=== PATIENT | male | born 1970 | race Caucasian/White ===

== ENCOUNTER 2018-10-22 07:39 | Emergency (ER) | payer OTHER ==
[2018-10-22 07:53] VITALS: BP 144/104; PULSE 103; TEMP 97.6; BMI 29.9
[2018-10-22] MEDS ORDERED: NAPROXEN 500 MG TABLET (FP) PO ONE (08:53)
[2018-10-22] MEDS ORDERED: NAPROXEN 500 MG TABLET (FP) ONE (08:54)
--- NOTE | 2018-10-22 08:54 | PDOC ---
History of Present Illness - General Chief Complaint: Injury Stated Complaint: L ANKLE INJURY Time Seen by Provider: 10/22/18 08:15 History Source: Patient Exam Limitations: No Limitations - History of Present Illness Initial Comments: 10/22/18 13:11 48 yr male with c/o left ankle pain for 2 weeks pt had injury 3 yrs ago. Pt denies recent injury . pt took tylenol for pain. Past History - Past Medical History Allergies/Adverse Reactions: Allergies Allergy/AdvReac Type Severity Reaction Status Date / Time Penicillins Allergy Severe Difficulty Verified 10/22/18 07:54 Breathing Home Medications: Ambulatory Orders Naproxen [Naprosyn -] 500 mg PO BID PRN #14 tablet 10/22/18 COPD: No - Immunization History Immunization Up to Date: Yes - Suicide/Smoking/Psychosocial Hx Smoking History: Never smoked Hx Alcohol Use: Yes Drug/Substance Use Hx: No *Physical Exam - Vital Signs Last Vital Signs Temp Pulse Resp BP Pulse Ox 97.6 F 103 H 18 144/104 H 100 10/22/18 07:44 10/22/18 07:44 10/22/18 07:44 10/22/18 07:44 10/22/18 07:44 - Physical Exam General Appearance: Yes: Nourished, Appropriately Dressed HEENT: positive: EOMI, RICARDO, TMs Normal, Pharynx Normal Neck: positive: Supple. negative: Tender Respiratory/Chest: positive: Lungs Clear, Normal Breath Sounds. negative: Chest Tender Cardiovascular: positive: Regular Rhythm, Regular Rate Gastrointestinal/Abdominal: positive: Normal Bowel Sounds, Soft Musculoskeletal: positive: Normal Inspection Extremity: positive: Normal Capillary Refill, Normal Inspection, Normal Range of Motion Integumentary: positive: Normal Color, Dry, Warm Neurologic: positive: Fully Oriented, Alert, Normal Mood/Affect, Normal Response , Motor Strength 5/5 ED Treatment Course - RADIOLOGY Radiology Studies Ordered: Category Date Time Status ANKLE & FOOT-LEFT* [RAD] Stat Radiology 10/22/18 08:18 Completed Medical Decision Making - Medical Decision Making 10/22/18 13:17 cc: ankle pain to left side with swelling to the lateral and medial malleolus nv intact no deformity will get xray , aircast splint 10/22/18 13:18 repeat BP is 140/76 10/22/18 13:22 *DC/Admit/Observation/Transfer Diagnosis at time of Disposition: Chronic ankle pain Qualifiers: Laterality: left Qualified Code(s): M25.572 - Pain in left ankle and joints of left foot - Discharge Dispostion Disposition: HOME Condition at time of disposition: Good - Prescriptions Prescriptions: Naproxen [Naprosyn -] 500 mg PO BID PRN #14 tablet PRN Reason: Pain - Referrals Referrals: Robert Rojas MD [Staff Physician] - - Patient Instructions Additional Instructions: follow with the orthopedist keep the ankle in the annabel wrap at all times except to bathe take naprosyn for pain as directed avoid long periods of walking on the ankle elevate and apply warm compresses - Post Discharge Activity
== END 2018-10-22 09:05 | disposition home or self-care (01) ==
LOC: JERFT 07:39
DX: M25.572 Pain in left ankle and joints of left foot (principal); G89.29 Other chronic pain
CPT/HCPCS: 73610-TC-LT-FY; 73630-TC-LT; 99281-25

== ENCOUNTER 2020-01-18 12:39 | Emergency (ER) | payer OTHER ==
[2020-01-18 12:46] VITALS: BP 120/69; PULSE 99; TEMP 98; BMI 26.6
--- NOTE | 2020-01-18 12:46 | PDOC ---
Rapid Medical Evaluation Time Seen by Provider: 01/18/20 12:45 Medical Evaluation: Allergies Allergy/AdvReac Type Severity Reaction Status Date / Time Penicillins Allergy Severe Difficulty Verified 01/18/20 12:43 Breathing 01/18/20 12:45 I performed a brief in-person evaluation of this patient. 49-year-old male with history of HTN presenting with non-traumatic left knee pain x 3 hrs. No fevers or systemic symptoms. Pertinent physical exam findings: Bearing partial weight. Diffusely tender over patella. No obvious edema/erythema. I have ordered the following: Knee x-ray. Patient to proceed to [facility] for further evaluation. Discharge Disposition - Diagnosis Knee pain - Referrals - Patient Instructions - Post Discharge Activity
--- NOTE | 2020-01-18 15:14 | PDOC ---
History of Present Illness - General Chief Complaint: Pain, Acute Stated Complaint: LT KNEE PAIN Time Seen by Provider: 01/18/20 12:45 - History of Present Illness Initial Comments: 01/18/20 15:11 49-year-old male with a past medical history of hypertension presents for evaluation of left knee pain atraumatic in onset without systemic symptoms x1 day. History of prior knee pain last year without any trauma Past History - Past Medical History Allergies/Adverse Reactions: Allergies Allergy/AdvReac Type Severity Reaction Status Date / Time Penicillins Allergy Severe Difficulty Verified 01/18/20 12:43 Breathing Home Medications: Ambulatory Orders Amlodipine Besylate [Norvasc -] 10 mg PO DAILY 01/18/20 Methylprednisolone [Medrol Dose Gustavo] 4 mg PO ASDIR #21 tablet 01/18/20 COPD: No - Immunization History Immunization Up to Date: Yes - Psycho Social/Smoking Cessation Hx Smoking History: Never smoked Hx Alcohol Use: Yes Drug/Substance Use Hx: No Review of Systems - Review of Systems Musculoskeletal: Yes: Joint Pain *Physical Exam - Vital Signs Last Vital Signs Temp Pulse Resp BP Pulse Ox 98 F 99 H 18 120/69 99 01/18/20 12:44 01/18/20 12:44 01/18/20 12:44 01/18/20 12:44 01/18/20 12:44 - Physical Exam 01/18/20 15:12 Left knee skin color and temperature normal range of motion is limited. There is mild intra-articular effusion no prepatellar effusion tenderness about the medial joint line and medial patellofemoral facet. No instability or gross sensorimotor deficits thighs and calves are soft and nontender neurovascular intact Medical Decision Making - Medical Decision Making 01/18/20 15:13 The left knee was prepped with Betadine and allowed to dry. Aseptically using an 18-gauge needle 0 cc were aspirated a dry sterile dressing and compressive wrap was placed. Post aspiration instructions were given. X-rays of the left knee show no fracture or trauma there is mild arthritic changes however x-rays are nonweightbearing. I believe this is either an exacerbation of arthritis or possibly a gout attack with such in an abrupt onset follow-up with Ortho Discharge - Discharge Information Problems reviewed: Yes Clinical Impression/Diagnosis: Knee pain, Gout attack Condition: Stable Disposition: HOME - Admission No - Additional Discharge Information Prescriptions: Methylprednisolone [Medrol Dose Gustavo] 4 mg PO ASDIR #21 tablet - Follow up/Referral Referrals: Ben Campos MD [Primary Care Provider] - - Patient Discharge Instructions Additional Instructions: Please leave the dressing on for the next 48 hours. Return to the emergency room for worsening symptoms. Start the Medrol Dosepak and take the medication as directed. Without fail follow-up with orthopedic surgery in 2 to 3 days for further evaluation and treatment options. - Post Discharge Activity
== END 2020-01-18 15:16 | disposition home or self-care (01) ==
LOC: JERFT 12:39
DX: M10.9 Gout, unspecified (principal); I10 Essential (primary) hypertension; Z88.0 Allergy status to penicillin
CPT/HCPCS: 73562-TC-LT-FY; 99283-25

== ENCOUNTER 2021-09-26 07:40 | Emergency (ER) | payer OTHER ==
[2021-09-26 07:59] VITALS: BP 135/85; PULSE 96; TEMP 98.5; BMI 30.7
[2021-09-26] MEDS ORDERED: KETOROLAC TROMETHAMINE 30 MG/1 ML VIAL IM ONE (08:17)
[2021-09-26] MEDS ORDERED: KETOROLAC TROMETHAMINE 30 MG/1 ML VIAL ONE (08:19)
== END 2021-09-26 08:53 | disposition home or self-care (01) ==
LOC: JER 07:40
PROC: 3E0233Z Introduction of Anti-inflammatory into Muscle, Percutaneous Approach (ICD-10-PCS; principal; 2021-09-26)
DX: S46.912A Strain of unspecified muscle, fascia and tendon at shoulder and upper arm level, left arm, initial encounter (principal); X50.0XXA Overexertion from strenuous movement or load, initial encounter
CPT/HCPCS: 73030-TC-LT-FY; 99284-25

== ENCOUNTER 2021-11-05 08:18 | Emergency (ER) | payer OTHER ==
[2021-11-05 08:24] VITALS: TEMP 98; BMI 30.7
[2021-11-05] MEDS ORDERED: INDOMETHACIN 50 MG CAPSULE PO ONE (08:57)
[2021-11-05] MEDS ORDERED: COLCHICINE 0.6 MG CAP PO ONE ×2 (08:57→10:18)
[2021-11-05 09:33] LABS: EOS % 0.5 % (0-4.5); HEMATOCRIT 41.2 % (35.4-49); HEMOGLOBIN 14.1 GM/dL (11.7-16.9); LYMPH % 13.3 % (8-40); MCHC 34.3 g/dl (32.0-35.9); MEAN CELL VOLUME 90.4 fl (80-96); MEAN PLT VOLUME 6.8 fl (7.5-11.1); MONO % 7.1 % (3.8-10.2); NEUT % 78.1 % (42.8-82.8); PLATELET COUNT 400 10^3/uL (134-434); RBC 4.55 M/mm3 (4.00-5.60); RDW 12.8 % (11.9-15.9); WHITE BLOOD COUNT 12.4 K/mm3 (4.0-10.0)
[2021-11-05 09:54] LABS: ALBUMIN 3.9 g/dl (3.4-5.0); BLOOD UREA NITROGEN 12.5 mg/dL (7-18); CALCIUM 9.5 mg/dL (8.5-10.1)
[2021-11-05 09:57] LABS: CREATININE 1.1 mg/dL (0.55-1.3)
[2021-11-05 09:58] LABS: BILIRUBIN,TOTAL 0.7 mg/dL (0.2-1); TOT PROT 8.9 g/dl (6.4-8.2)
[2021-11-05 10:14] LABS: ERYTHROCYTE SEDIMENTATION RATE 62 mm/hr (0-20)
[2021-11-05 10:42] VITALS: BP 138/78; PULSE 88
== END 2021-11-05 10:43 | disposition home or self-care (01) ==
LOC: JER 08:18
DX: M25.562 Pain in left knee (principal); M79.89 Other specified soft tissue disorders
CPT/HCPCS: 36415; 73560-TC-LT-FY; 73610-TC-LT-FY; 80053; 84550; 85025; 85651; 86140; 99284-25

== ENCOUNTER 2022-01-28 08:55 | Emergency (ER) | payer OTHER ==
[2022-01-28 08:58] VITALS: BP 153/93; PULSE 108; TEMP 97.8; BMI 30.7
[2022-01-28] MEDS ORDERED: KETOROLAC TROMETHAMINE 30 MG/1 ML VIAL IM ONE (09:38)
[2022-01-28] MEDS ORDERED: predniSONE 20 MG TABLET (UD) PO ONE (09:39)
[2022-01-28] MEDS ORDERED: KETOROLAC TROMETHAMINE 30 MG/1 ML VIAL ONE (09:45)
[2022-01-28] MEDS ORDERED: predniSONE 20 MG TABLET (UD) ONE (09:45)
== END 2022-01-28 10:31 | disposition home or self-care (01) ==
LOC: JER 08:55
PROC: 3E0233Z Introduction of Anti-inflammatory into Muscle, Percutaneous Approach (ICD-10-PCS; principal; 2022-01-28)
DX: M25.562 Pain in left knee (principal); M70.52 Other bursitis of knee, left knee
CPT/HCPCS: 73562-TC-LT-FY; 96372; 99284-25

== ENCOUNTER 2022-03-17 09:28 | Emergency (ER) | payer OTHER ==
[2022-03-17 09:33] VITALS: BP 157/96; PULSE 96; TEMP 98.7; BMI 28.9
[2022-03-17] MEDS ORDERED: KETOROLAC TROMETHAMINE 30 MG/1 ML VIAL IM ONE (10:23)
[2022-03-17] MEDS ORDERED: KETOROLAC TROMETHAMINE 30 MG/1 ML VIAL ONE (10:29)
== END 2022-03-17 11:09 | disposition home or self-care (01) ==
LOC: JERFT 09:28
PROC: 3E0233Z Introduction of Anti-inflammatory into Muscle, Percutaneous Approach (ICD-10-PCS; principal; 2022-03-17)
DX: M25.562 Pain in left knee (principal)
CPT/HCPCS: 73562-TC-LT-FY; 99284-25

== ENCOUNTER 2023-03-16 10:43 | Emergency (ER) | payer OTHER ==
[2023-03-16 10:55] VITALS: BP 121/77; PULSE 86; RESP 18; TEMP 98.4; BMI 33.0
== END 2023-03-16 12:58 | disposition home or self-care (01) ==
LOC: JER 10:43 → JERFT 10:43
DX: L02.224 Furuncle of groin (principal); L02.214 Cutaneous abscess of groin; L03.818 Cellulitis of other sites
CPT/HCPCS: 87070; 87186; 87205; 87252; 99283-25

== ENCOUNTER 2023-09-14 08:12 | Emergency (ER) | payer OTHER ==
[2023-09-14 08:27] VITALS: RESP 18; TEMP 97.8; BMI 29.9
[2023-09-14] MEDS ORDERED: ACETAMINOPHEN 500 MG TABLET (FP) PO ONE (09:30)
[2023-09-14] MEDS ORDERED: ACETAMINOPHEN 500 MG TABLET (FP) ONE ×2 (10:00→10:06)
[2023-09-14 10:14] VITALS: BP 152/94; PULSE 66
== END 2023-09-14 10:14 | disposition home or self-care (01) ==
LOC: JER 08:12 → JERFT 08:12
PROC: 2W3CX1Z Immobilization of Right Lower Arm using Splint (ICD-10-PCS; principal; 2023-09-14)
DX: S63.501A Unspecified sprain of right wrist, initial encounter (principal); M79.641 Pain in right hand; X50.3XXA Overexertion from repetitive movements, initial encounter; Y93.9 Activity, unspecified; Y92.009 Unspecified place in unspecified non-institutional (private) residence as the place of occurrence of the external cause
CPT/HCPCS: 73110-TC-RT-FY; 73130-TC-RT-FY; 99285-25

== ENCOUNTER 2023-09-19 17:01 | Emergency (ER) | payer OTHER ==
[2023-09-19 17:07] VITALS: BP 140/88; PULSE 96; RESP 16; TEMP 98.2; BMI 30.1
[2023-09-19] MEDS ORDERED: predniSONE 20 MG TABLET (UD) PO ONE (17:46)
[2023-09-19] MEDS ORDERED: ACETAMINOPHEN 500 MG TABLET (FP) PO ONE (17:46)
[2023-09-19] MEDS ORDERED: ACETAMINOPHEN 500 MG TABLET (FP) ONE (17:50)
[2023-09-19] MEDS ORDERED: predniSONE 20 MG TABLET (UD) ONE (17:50)
[2023-09-19] MEDS ORDERED: KETOROLAC TROMETHAMINE 30 MG/1 ML VIAL IM ONE (18:07)
[2023-09-19] MEDS ORDERED: KETOROLAC TROMETHAMINE 30 MG/1 ML VIAL ONE (18:20)
== END 2023-09-19 18:27 | disposition home or self-care (01) ==
LOC: JERFT 17:01
PROC: 3E0233Z Introduction of Anti-inflammatory into Muscle, Percutaneous Approach (ICD-10-PCS; principal; 2023-09-19)
DX: M25.511 Pain in right shoulder (principal); G89.29 Other chronic pain
CPT/HCPCS: 73030-TC-RT-FY; 99284-25

== ENCOUNTER 2023-11-23 08:21 | Emergency (ER) | payer OTHER ==
[2023-11-23 08:31] VITALS: BP 145/89; PULSE 91; RESP 18; TEMP 98.2; BMI 29.1
== END 2023-11-23 08:55 | disposition home or self-care (01) ==
LOC: JER 08:21 → JERFT 08:21
DX: M25.572 Pain in left ankle and joints of left foot (principal); R22.42 Localized swelling, mass and lump, left lower limb; M10.9 Gout, unspecified
CPT/HCPCS: 99283-25

== ENCOUNTER 2024-02-01 07:16 | Emergency (ER) | payer OTHER ==
[2024-02-01 07:32] VITALS: BP 128/85; PULSE 89; RESP 18; TEMP 98.5; BMI 26.9
[2024-02-01] MEDS ORDERED: LIDOCAINE 4% PATCH TP ONE (09:10)
[2024-02-01] MEDS ORDERED: ACETAMINOPHEN 325 MG TABLET (FP) ONE (09:10)
[2024-02-01] MEDS ORDERED: KETOROLAC TROMETHAMINE 30 MG/1 ML VIAL ONE (09:11)
[2024-02-01] MEDS: LIDOCAINE 5% TOPICAL PATCH TP ONE (09:18)
[2024-02-01] MEDS: ACETAMINOPHEN 325 MG TABLET (FP) PO ONE (09:19)
[2024-02-01] MEDS: KETOROLAC TROMETHAMINE 30 MG/1 ML VIAL IM ONE (09:19)
== END 2024-02-01 10:42 | disposition home or self-care (01) ==
LOC: JER 07:16
PROC: 3E0233Z Introduction of Anti-inflammatory into Muscle, Percutaneous Approach (ICD-10-PCS; principal; 2024-02-01)
DX: M25.562 Pain in left knee (principal)
CPT/HCPCS: 73562-TC-LT-FY; 99284-25